=== PATIENT | female | born 1955 | race Caucasian/White ===

== ENCOUNTER → 2016-12-22 | Outpatient (CLI) | payer OTHER, MEDICARE ==
[~2016-12-22] MED LIST: AMBIEN5 MG PO; CELLCEPT500 MG PO; LIPITOR20 M1 PO; MUCOMYST 20200 MG/M1 PO; NORCO 10-325 T1 EACH PO; OMEPRAZOLE40 MG PO; OXYGEN M-15 INH; TENORMIN50 MG PO; TYLENOL/COD#31 TAB PO; ZOFRAN ODT8 MG PO
== END | disposition disaster alternative care site (69) ==
LOC: GRAD 07:36
DX: M25.512 Pain in left shoulder (principal); S43.432D Superior glenoid labrum lesion of left shoulder, subsequent encounter; M25.552 Pain in left hip; M54.2 Cervicalgia; M16.0 Bilateral primary osteoarthritis of hip